=== PATIENT | female | born 1980 | race Hispanic/Latino ===

== ENCOUNTER 2020-12-24 13:57 | Emergency (ER) | payer SELFPAY ==
--- NOTE | 2020-12-24 15:46 | Event Note ---
ED Screening Note Date of service: 12/24/20 Time: 15:45 ED Screening Note: 40-year-old female patient presents to the emergency department with complaints of right hip, right thigh, and right knee pain status post mechanical fall. Patient states she was ambulating in her house when she accidentally slipped on a piece of cardboard and "landed in a split." There was no resulting head injury or loss of consciousness. Patient has been unable to bear weight on her right lower extremity since the fall. No history of prior injuries to the right lower extremity. General: Awake, appropriately interactive, no acute distress. Neck: Supple. Full range of motion intact. Cardiovascular: Normal peripheral perfusion. Pulmonary: No respiratory distress. Patient is speaking normally without use of accessory muscles. Skin: No apparent rashes or lesions. Neurological: No facial asymmetry. Speech is clear. Follows commands. Patient is alert and oriented. Musculoskeletal: Tenderness to palpation throughout the right hip, right femur, and right knee. Psych: Cooperative. Appropriate mood and affect. Initial x-rays ordered. Decision to obtain further imaging deferred to additional ED providers following complete history and comprehensive trauma assessment. I have greeted and performed a focused rapid initial assessment of this patient. A comprehensive ED assessment and evaluation of the patient, analysis of all test results, and completion of the medical decision-making process will be conducted by additional ED providers. This initial assessment/diagnostic orders/clinical plan/treatment(s) is/are subject to change based on patients health status, clinical progression and re-assessment. Further treatment and workup at subsequent clinical provider's discretion. Patient/guardian urged not to elope from the ED as their condition may be serious if not clinically assessed and managed.
--- NOTE | 2020-12-24 16:35 | XRay Report ---
XR hip 2-3V RT, XR femur 2+V RT, XR knee 3V RT INDICATION / CLINICAL INFORMATION: fall. COMPARISON: CT from 09/23/2015. FINDINGS: Pelvis/right hip/right femur: No acute fracture. No hip dislocation. Joint spaces are preserved. No s ignificant arthritis. SI joints and pubic symphysis are intact. No focal soft tissue abnormality. Right knee: No fracture or malalignment. Joint spaces are preserved. No significant joint effusion. S oft tissues are unremarkable. IMPRESSION: No acute osseous abnormality of the right hip, femur, knee. Signer Name: Gavin Casarez MD Signed: 12/24/2020 4:30 PM Workstation Name: [id number]
[2020-12-24] MEDS ORDERED: HYDROcodone/ACETAMINOPHEN 10-325MG TAB PO ONE (17:11)
--- NOTE | 2020-12-24 18:02 | Emergency Department Report ---
ED Lower Extremity HPI - General Chief Complaint: Extremity Injury, Lower Stated Complaint: FELL/ HIP TO ANKLE PAIN Time Seen by Provider: 12/24/20 16:40 Source: patient Mode of arrival: Wheelchair Limitations: No Limitations - History of Present Illness Initial Comments: This is a 40-year-old female nontoxic, well nourished in appearance, no acute signs of distress presents to the ED with c/o of right knee, right hip, and right thigh pain 1 days. Patient stated that she had a mechanical trip and fall to right lower extremity. Patient denies any other injuries or trauma. Patient denies any LOC. Denies any neck pain or back pain. Denies any head trauma. Patient denies any other complaints or symptoms. Patient denies any numbness, tingling, fever, chills, nausea, vomiting, chest pain, shortness of breath, headache, stiff neck. Patient denies any joint swelling or joint redness. Patient denies decreased range of motion. Patient stated has decreased gait due to pain. Patient stated allergies to butorphanl tartrate. MD Complaint: hip injury, thigh injury, knee injury -: days(s) Injury: Hip: Right, Thigh: Right Severity: mild Severity scale (0 -10): 8 Improves With: immobilization Worsens With: weight bearing, movement, palpation Associated Symptoms: able to partially bear weight. denies: snap/pop sensation, swelling, numbness, tingling, unable to bear weight - Related Data Previous Rx's Medication Instructions Recorded Last Taken Type Naproxen 500 mg PO Q12H PRN #12 tablet 12/24/20 Unknown Rx Allergies Allergy/AdvReac Type Severity Reaction Status Date / Time butorphanol tartrate Allergy Unknown Verified 12/24/20 14:33 [From Stadol] ED Review of Systems ROS: Stated complaint: FELL/ HIP TO ANKLE PAIN Other details as noted in HPI Comment: All other systems reviewed and negative Constitutional: denies: chills, fever Eyes: denies: eye pain, eye discharge, vision change ENT: denies: ear pain, throat pain Respiratory: denies: cough, shortness of breath, wheezing Cardiovascular: denies: chest pain, palpitations Endocrine: no symptoms reported Gastrointestinal: denies: abdominal pain, nausea, diarrhea Genitourinary: denies: urgency, dysuria, discharge Musculoskeletal: denies: back pain, joint swelling, arthralgia Skin: denies: rash, lesions Neurological: denies: headache, weakness, paresthesias Psychiatric: denies: anxiety, depression Hematological/Lymphatic: denies: easy bleeding, easy bruising ED Past Medical Hx - Past Medical History Previous Medical History?: No Hx Liver Disease: Yes (HEPATITIS C) Hx Headaches / Migraines: Yes - Surgical History Additional Surgical History: tubal ligation - Social History Smoking Status: Former Smoker - Medications Home Medications: Home Medications Medication Instructions Recorded Confirmed Last Taken Type Naproxen 500 mg PO Q12H PRN #12 tablet 12/24/20 Unknown Rx ED Physical Exam - General Limitations: No Limitations General appearance: alert, in no apparent distress - Head Head exam: Present: atraumatic, normocephalic - Eye Eye exam: Present: normal appearance - Neck Neck exam: Present: normal inspection, full ROM. Absent: lymphadenopathy - Respiratory Respiratory exam: Absent: respiratory distress - Cardiovascular Cardiovascular Exam: Present: regular rate - GI/Abdominal GI/Abdominal exam: Present: soft. Absent: distended, tenderness - Extremities Exam Extremities exam: Present: normal inspection, full ROM, tenderness, normal capillary refill. Absent: pedal edema, joint swelling, calf tenderness - Expanded Lower Extremity Exam Right Hip exam: Present: normal inspection, full ROM, tenderness, external rotation, internal rotation, pelvic stability. Absent: swelling, abrasion, laceration, ecchymosis, deformity, crepidus, dislocation, erythema, shortening Upper Leg exam: Present: normal inspection, full ROM, tenderness (Lateral thigh). Absent: swelling, abrasion, laceration, ecchymosis, deformity, crepidus, dislocation, erythema Knee exam: Present: normal inspection, full ROM, tenderness, full knee extension. Absent: swelling, abrasion, laceration, ecchymosis, deformity, crepidus, dislocation, erythema, effusion, pain w/ pronation/supination, posterior draw sign, pain/laxity with valgus, pain/laxity with varus Lower Leg exam: Present: normal inspection, full ROM. Absent: tenderness, swelling, abrasion, laceration, ecchymosis, deformity, crepidus, dislocation, erythema, palpable cord, Alexander's sign Ankle exam: Present: normal inspection, full ROM. Absent: tenderness, swelling, abrasion, laceration, ecchymosis, deformity, crepidus, dislocation, erythema, anterior draw sign Foot/Toe exam: Present: normal inspection, full ROM. Absent: tenderness, swelling, abrasion, laceration, ecchymosis, deformity, crepidus, dislocation, erythema, amputation, puncture wound, foreign body, calcaneal tenderness, tenderness at base of 5th metatarsal, nail avulsion, subungual hematoma Neuro vascular tendon exam: Present: no vascular compromise Gait: Positive: observed and limited by pain - Back Exam Back exam: Present: normal inspection, full ROM. Absent: tenderness, CVA tenderness (R), CVA tenderness (L), muscle spasm, paraspinal tenderness, vertebral tenderness, rash noted - Neurological Exam Neurological exam: Present: alert, oriented X3 - Psychiatric Psychiatric exam: Present: normal affect, normal mood - Skin Skin exam: Present: warm, dry, intact, normal color. Absent: rash ED Course Vital Signs 12/24/20 14:35 Temperature 98.4 F Pulse Rate 69 Respiratory 20 Rate Blood Pressure 135/85 O2 Sat by Pulse 98 Oximetry - Reevaluation(s) Reevaluation #1: 12/24/20 18:00 Patient is speaking in full sentences with no signs of distress noted. ED Lower Extremity MDM - Radiology Data [facility] [address] [place] [address] XRay Report Signed Patient: ELMIRA CHIN MR#: [id number] : 1980 Acct:[id number] Age/Sex: 40 / F ADM Date: 12/24/20 Loc: ED Attending Dr: Ordering Physician: ALEE FISHER Date of Service: 12/24/20 Procedure(s): XR knee 3V RT Accession Number(s): [id number] cc: ALEE FISHER Fluoro Time In Minutes: XR hip 2-3V RT, XR femur 2+V RT, XR knee 3V RT INDICATION / CLINICAL INFORMATION: fall. COMPARISON: CT from 09/23/2015. FINDINGS: Pelvis/right hip/right femur: No acute fracture. No hip dislocation. Joint spaces are preserved. No significant arthritis. SI joints and pubic symphysis are intact. No focal soft tissue abnormality. Right knee: No fracture or malalignment. Joint spaces are preserved. No significant joint effusion. Soft tissues are unremarkable. IMPRESSION: No acute osseous abnormality of the right hip, femur, knee. Signer Name: Lillie Casarez MD Signed: 12/24/2020 4:30 PM Workstation Name: [id number] Transcribed By: REMY Dictated By: LILLIE CASAREZ MD Electronically Authenticated By: LILLIE CASAREZ MD Signed Date/Time: 12/24/201629 DD/ 27 TD/TT: [address] [address] XRay Report Signed Patient: ELMIRA CHIN MR#: [id number] : 1980 Acct:[id number] Age/Sex: 40 / F ADM Date: 12/24/20 Loc: ED Attending Dr: Ordering Physician: ALEE FISHER Date of Service: 12/24/20 Procedure(s): XR femur 2+V RT Accession Number(s): [id number] cc: ALEE FISHER Fluoro Time In Minutes: XR hip 2-3V RT, XR femur 2+V RT, XR knee 3V RT INDICATION / CLINICAL INFORMATION: fall. COMPARISON: CT from 09/23/2015. FINDINGS: Pelvis/right hip/right femur: No acute fracture. No hip dislocation. Joint spaces are preserved. No significant arthritis. SI joints and pubic symphysis are intact. No focal soft tissue abnormality. Right knee: No fracture or malalignment. Joint spaces are preserved. No significant joint effusion. Soft tissues are unremarkable. IMPRESSION: No acute osseous abnormality of the right hip, femur, knee. Signer Name: Lillie Casarez MD Signed: 12/24/2020 4:30 PM Workstation Name: [id number] Transcribed By: REMY Dictated By: LILLIE CASAREZ MD Electronically Authenticated By: LILLIE CASAREZ MD Signed Date/Time: 12/24/201629 DD/ 27 TD/TT: [address] [address] XRay Report Signed Patient: ELMIRA CHIN MR#: [id number] : 1980 Acct:[id number] Age/Sex: 40 / F ADM Date: 12/24/20 Loc: ED Attending Dr: Ordering Physician: ALEE FISHER Date of Service: 12/24/20 Procedure(s): XR hip 2-3V RT Accession Number(s): [id number] cc: ALEE FISHER Fluoro Time In Minutes: XR hip 2-3V RT, XR femur 2+V RT, XR knee 3V RT INDICATION / CLINICAL INFORMATION: fall. COMPARISON: CT from 09/23/2015. FINDINGS: Pelvis/right hip/right femur: No acute fracture. No hip dislocation. Joint spaces are preserved. No significant arthritis. SI joints and pubic symphysis are intact. No focal soft tissue abnormality. Right knee: No fracture or malalignment. Joint spaces are preserved. No significant joint effusion. Soft tissues are unremarkable. IMPRESSION: No acute osseous abnormality of the right hip, femur, knee. Signer Name: Lillie Casarez MD Signed: 12/24/2020 4:30 PM Workstation Name: [id number] Transcribed By: REMY Dictated By: LILLIE CASAREZ MD Electronically Authenticated By: LILLIE CASAREZ MD Signed Date/Time: 12/24/20 1630 DD/ 1628 TD/TT: - Medical Decision Making This is a 40-year-old female that presents with fall with right lower extremity strain. Patient is stable and was examined by me. I referred patient to an orthopedic doctor for further evaluation for possible MRI. X-ray has been obtained and dictated by the radiologist. Patient is notified of the x-ray report with noted by the patient. Patient does have normal gait with some tenderness and no joint swelling. No ecchymosis. no joint redness or swelling. Not warm to touch. No signs of cellulites present. Patient received a knee immobilize and crutches and was educated by RN how to use crutches. Patient was instructed to RICE therapy. Patient received [place] for pain which stated symptoms improve and subsiding. Patient stated that family member will drive patient home after discharge due to possible drowsiness. Patient is discharged with naproxen. At time of discharge, the patient does not seem toxic or ill in appearance. No acute signs of distress noted. Patient agrees to discharge treatment plan of care. No further questions noted by the patient. Critical care attestation.: If time is entered above; I have spent that time in minutes in the direct care of this critically ill patient, excluding procedure time. ED Disposition Clinical Impression: Fall Qualifiers: Encounter type: initial encounter Qualified Code(s): W19.XXXA - Unspecified fall, initial encounter Strain of right hip Qualifiers: Encounter type: initial encounter Qualified Code(s): S76.011A - Strain of muscle, fascia and tendon of right hip, initial encounter Strain of right knee and leg Qualifiers: Encounter type: initial encounter Qualified Code(s): S86.911A - Strain of unspecified muscle(s) and tendon(s) at lower leg level, right leg, initial enco unter Disposition: TO HOME OR SELFCARE Is pt being admited?: No Does the pt Need Aspirin: No Condition: Stable Instructions: RICE Therapy for Routine Care of Injuries, [id number], Crutch Use, Adult, [id number] Additional Instructions: Follow-up with a orthopedic doctor in 3-5 days or if symptoms worsen and continue return to emergency room as soon as possible. No physical activity that extremity until cleared by orthopedic doctor Prescriptions: Naproxen 500 mg PO Q12H PRN #12 tablet PRN Reason: Pain , Severe (7-10) Referrals: PRIMARY CARE, [Primary Care Provider] - 3-5 Days KEVIN ETIENNE MD [Staff Physician] - 3-5 Days Forms: Work/School Release Form(ED) Time of Disposition: 18:04
[2020-12-24 18:26] VITALS: BP 134/82
== END 2020-12-24 19:00 | disposition home or self-care (01) ==
LOC: ED 13:57
DX: S76.011A Strain of muscle, fascia and tendon of right hip, initial encounter (principal); S86.911A Strain of unspecified muscle(s) and tendon(s) at lower leg level, right leg, initial encounter; G43.909 Migraine, unspecified, not intractable, without status migrainosus; Z98.51 Tubal ligation status; Z79.899 Other long term (current) drug therapy; Z88.8 Allergy status to other drugs, medicaments and biological substances; Z87.891 Personal history of nicotine dependence; W18.30XA Fall on same level, unspecified, initial encounter; Y93.89 Activity, other specified; Y92.89 Other specified places as the place of occurrence of the external cause; Y99.8 Other external cause status